=== PATIENT | female | born 1955 | race Caucasian/White ===

== ENCOUNTER 2017-05-27 17:51 | Inpatient (IN) | payer BC, OTHER ==
[2017-05-27 18:57] LABS: ABS Basophils 0.1 10^3/ul (0-0.2); ABS Eosinophils 0.2 10^3/ul (0-0.6); ABS Lymphocytes 1.4 10^3/ul (1.0-4.8); ABS Monocytes 0.7 10^3/ul (0-0.8); ABS Neutrophils 5.6 10^3/ul (1.5-7.7); ABS Nucleated RBC 0 10^3/ul; Hematocrit 41 % (35-47); Lymphocyte % 18.2 % (25-47); Mean Corpuscular HGB Conc 34 g/dl (31-36); Mean Corpuscular Hemoglobin 30 pg (27-31); Mean Corpuscular Volume 90 fL (80-97); Mean Platelet Volume 7 um3 (7.4-10.4); Nucleated Red Blood Cells % 0.1; Platelet Count 346 10^3/ul (150-450); Red Blood Count 4.62 10^6/ul (4.0-5.4); Red Cell Distribution Width 13 % (10.5-15); White Blood Count 7.9 10^3/ul (3.5-10.8)
[2017-05-27 19:13] LABS: EGFR Non-African American 133.4 (>60)
--- NOTE | 2017-05-27 19:14 | RAD ---
Indication: Shortness of breath. 2 views of the chest are reviewed and compared to previous exam dated January 18, 2015. Enlarged pulmonary arteries are noted with cephalization of lung markings suspicious for vascular congestion. No pleural fluid is identified. IMPRESSION: Findings suggestive of vascular congestion.
[2017-05-27] MEDS ORDERED: Albuterol/Ipratropium NEB.SOL* Albuterol 2.5 MG/Ipratropium 0.5 MG 3 ML INH ONE (20:42)
[2017-05-27] MEDS ORDERED: methylPREDNISolone 125 MG* 2 ML VIAL IV ONE (20:42)
[2017-05-27] MEDS ORDERED: Acetaminophen TAB* 325 MG PO PRN (22:19)
[2017-05-27] MEDS ORDERED: Ondansetron INJ* 2 MG/ML VIAL IV PRN (22:19)
[2017-05-27] MEDS ORDERED: Carisoprodol TAB* 350 MG PO PRN (22:50)
[2017-05-27] MEDS ORDERED: methylPREDNISolone SOD 40 MG* 1 ML VIAL IV SCH (23:00)
[2017-05-28] MEDS: Carisoprodol TAB* 350 MG PO PRN ×3 (00:20→22:18)
[2017-05-28] MEDS: cefTRIAXone(*) 1 GM in NS 0.9% 50 ML* 50 ML IVPB SCH ×2 (00:20→06:51)
[2017-05-28] MEDS: DOXYcycline CAP(*) 100 MG PO SCH ×3 (00:21→22:17)
[2017-05-28] MEDS: oxyCODONE/Acetamin 5/325 MG* TAB PO PRN ×2 (00:21→06:42)
[2017-05-28] MEDS: oxyCODONE TAB* 5 MG TAB PO PRN ×2 (00:27→06:43)
[2017-05-28] MEDS: Enoxaparin(*) 40 MG/0.4 ML SYR SUBCUT SCH ×2 (01:12→22:20)
[2017-05-28] MEDS: Albuterol HFA INHALER* 8 gm MDI INH PRN ×2 (01:18→16:11)
[2017-05-28] MEDS: Mometasone/Formoter 100/5 MDI INH SCH ×3 (01:21→19:52)
[2017-05-28] MEDS: Albuterol 2.5 MG/3 ML NEB.SOL* (0.083%) INH SCH ×5 (01:21→19:52)
[2017-05-28 06:27] LABS: ABS Basophils 0 10^3/ul (0-0.2); ABS Eosinophils 0 10^3/ul (0-0.6); ABS Lymphocytes 0.4 10^3/ul (1.0-4.8); ABS Monocytes 0.1 10^3/ul (0-0.8); ABS Neutrophils 6.3 10^3/ul (1.5-7.7); ABS Nucleated RBC 0 10^3/ul; Eosinophil % 0 % (0-6); Hematocrit 41 % (35-47); Hemoglobin 13.8 g/dl (12.0-16.0); Lymphocyte % 6.2 % (25-47); Mean Corpuscular HGB Conc 33 g/dl (31-36); Mean Corpuscular Hemoglobin 30 pg (27-31); Mean Corpuscular Volume 90 fL (80-97); Mean Platelet Volume 7 um3 (7.4-10.4); Nucleated Red Blood Cells % 0; Platelet Count 330 10^3/ul (150-450); Red Blood Count 4.62 10^6/ul (4.0-5.4); Red Cell Distribution Width 13 % (10.5-15); White Blood Count 6.8 10^3/ul (3.5-10.8)
[2017-05-28 06:30] LABS: EGFR Non-African American 111.3 (>60)
[2017-05-28] MEDS ORDERED: methylPREDNISolone SOD 40 MG* 1 ML VIAL IV SCH (08:00)
[2017-05-28] MEDS: Vitamin E CAP* 400 UNIT PO SCH (08:18)
[2017-05-28] MEDS: Cholecalciferol TAB* 400 UNIT PO SCH (08:18)
[2017-05-28] MEDS: CMCS:OMEGA-3 FATTY ACIDS (NF) 1,000 MG CAP PO SCH (08:18)
[2017-05-28] MEDS: Ascorbic Acid TAB* 500 MG PO SCH ×2 (08:19→22:18)
[2017-05-28] MEDS: Sertraline* 100 MG TAB PO SCH ×2 (08:19→22:17)
[2017-05-28] MEDS: Tiotropium CAP.INH* CAP.INH/18 MCG (USE ORDER SET !) INH SCH (08:50)
[2017-05-28] MEDS ORDERED: Spiriva Inhaler DEVICE* 1 EACH DEVICE INH ONE (09:00)
[2017-05-28] MEDS ORDERED: Magnesium Hydroxide LIQ* 30 ML UDC PO ONE (09:43)
--- NOTE | 2017-05-28 10:33 | HP ---
CC: Dr. Marilin Martinez * HISTORY AND PHYSICAL: DATE OF ADMISSION: 05/27/17 PROVIDER: Regla Gee NP. PRIMARY CARE PROVIDER: Marilin Martinez MD. ATTENDING PHYSICIAN WHILE IN THE HOSPITAL: Valeria Garner DO * (dictated by Regla Gee NP.) CHIEF COMPLAINT: Shortness of breath. HISTORY OF PRESENT ILLNESS: Ms. Waters is a 62-year-old female who presented to the emergency room this evening after 10 days of increased shortness of breath. She states over the past 10 days it has been progressively getting worse. Initially, she did not wear oxygen at home, and approximately 10 days ago started wearing oxygen at 3.5 liters and since then has had to increase that to 4 liters. She states that she has had chills on and off for the past 10 days. She also reports decreased appetite due to her inability to breathe. She also reports that she has a moist congested cough that is productive with green-yellow sputum, and sometimes it is clear. She also reports that she has stopped taking her medications approximately 10 days ago due to the fact that she was unable to breathe well. She denies any weight gain. She does report that she had approximately a 10- pound weight loss in the last 10 days due to her decreased appetite. She denies any extremity swelling. She denies any nausea, vomiting, or diarrhea. She denies any abdominal pain. She does report increased shortness of breath. She denies any chest pain. She denies any dysuria, frequency, or hematuria. Denies any loss of consciousness. She does report chills on and off. Does not report any fever, but does state that she has felt hot at times. Due to her unrelieved shortness of breath, we were asked to evaluate her for admission by the emergency room. The patient also does report that she was recently prescribed antibiotics for a sinus infection approximately three weeks ago that she said did help her temporarily. She states about 10 days ago, she was prescribed Tamiflu by her primary care provider when she called and reported body aches and chills. She was not seen by her primary care at that time. PAST MEDICAL HISTORY: 1. COPD. 2. Hypertension. 3. Chronic back pain. 4. Depression. 5. Obstructive sleep apnea. PAST SURGICAL HISTORY: Back surgery. HOME MEDICATIONS: Include: 1. Zoloft 100 mg p.o. b.i.d. 2. Vitamin D 400 units p.o. daily. 3. Vitamin C 500 units p.o. b.i.d. 4. Ambien 10 mg p.o. at bedtime p.r.n. 5. Vitamin E 400 units p.o. daily. 6. Aldactone 50 mg p.o. daily. 7. Fish oil 1000 mg p.o. daily. 8. Furosemide 40 mg p.o. daily. 9. Oxycodone/acetaminophen 10/325 one tablet every 6 hours. 10. Soma 350 mg p.o. q. 6 hours as needed. 11. Spiriva one cap inhaled daily. 12. Symbicort 80/4.5 one puff b.i.d. 13. Albuterol HFA two puffs q. 4 hours as needed for shortness of breath. ALLERGIES TO MEDICATIONS: 1. AZITHROMYCIN. 2. CODEINE. 3. LEVOFLOXACIN. FAMILY HISTORY: She states that her family history is unknown with her biological father. She states her biological mother did have diabetes. Denies any family history of coronary artery disease or cancer. SOCIAL HISTORY: The patient reports that she continues to smoke two packs a day for the past 43 years. She denies any alcohol use. Denies any drug use. She is currently and she lives with her . In the event she is unable to make her own medical decisions, her Carmeol is her surrogate decision maker. REVIEW OF SYSTEMS: There was no documented fever. There has been a reported approximately 10-pound weight loss. The patient denies any double vision. Denies any ear drainage. Denies any rhinorrhea. Denies sore throat. Denies any chest pain. Does report shortness of breath at rest and with exertion. There is no abdominal pain. No nausea, vomiting, or diarrhea. No dysuria. No frequency. She denies any loss of consciousness. Denies any skin ulcerations or pruritus. Review of 14 systems was completed and all others were negative. PHYSICAL EXAMINATION GENERAL: At this time, Ms. Waters is a 62-year-old female. She appears in moderate respiratory distress, sitting on the stretcher in the emergency room. VITAL SIGNS: Blood pressure was 106/55, temperature 98.7, pulse 79, respirations 16, O2 saturation is 99% on 4 L. HEENT: Head is atraumatic, normocephalic. Eyes: EOMs are intact. Sclerae anicteric and not pale. Oral mucosa appears to be moist. There is no oropharyngeal erythema. NECK: Supple. LUNGS: Diminished throughout bilaterally. No wheezes, rales, or rhonchi. HEART: S1, S2. Regular rate and rhythm. No murmurs, rubs, or gallops. ABDOMEN: Soft, flat, nontender. Bowel sounds are active x4. EXTREMITIES: Pulses are +2 throughout. She is moving all 4 extremities with 5/ 5 strength. NEUROLOGIC: She is alert and oriented x3. Speech is clear. There are no focal deficits. SKIN: Intact. DIAGNOSTIC STUDIES AND LABORATORY DATA: WBC is 7.9, hemoglobin 14.0, hematocrit 41, and platelet count 346. Sodium 137, potassium 3.8, chloride 93, carbon dioxide 43, anion gap 1, BUN 7, creatinine 0.47, glucose 85, lactic acid 0.8, calcium 9.7, AST 10. C-reactive protein 49.14. BNP 33. Troponin 0.00. Albumin was 3.5. Chest x-ray: Radiologist's impression: Finding suggestive of vascular congestion. EKG: She is in sinus rhythm at a rate of 73. There are no ST changes. ASSESSMENT AND PLAN: Ms. Waters is a 62-year-old female that presented to the emergency room this evening for complaints of increase shortness of breath x10 days. We were asked to evaluate her due to her increased shortness of breath. She will be admitted inpatient status for: 1. Chronic obstructive pulmonary disease exacerbation. I suspect that her shortness of breath is related to chronic obstructive pulmonary disease exacerbation rather than volume overload. At this time, we will place her on albuterol and nebulizers q. 4 hours while awake. I will continue her Spiriva. We will continue her Symbicort. She will be placed on Solu-Medrol 60 mg IV q. 12 hours. I will also place her on doxycycline 100 mg p.o. b.i.d. and ceftriaxone 1 g IV q. 24 hours to cover her empirically for possibility of underlying pneumonia due to the severity of her symptoms. I will repeat a CBC in the a.m. She will be continued on oxygen support as needed. 2. Hypertension. Again, her blood pressure is now noted to be in the 90s and low 100s. She states that always runs that way. She is asymptomatic. I am going to hold her Lasix and spironolactone at this time. 3. Chronic pain. We will continue her pain meds as prescribed - oxycodone and Soma on a p.r.n. basis. 4. Depression. Stable at this time. We will continue supportive care and continue her Zoloft. 5. DVT prophylaxis. She is at high risk with a rating of number 3. She will be placed on Lovenox subcu daily. 6. Code status. She is a full code. 7. Fluids, electrolytes, and nutrition. I will place her on a low-sodium diet. TIME SPENT: Time spent on this admission was approximately 60 minutes; greater than half that time was spent [id number] with the patient obtaining history and physical, and the other half of the time was spent going over the plan of care with the patient and implementing that plan of care. I have discussed this with my attending, Dr. Valeria Garner, and she is in agreement with my plan. REGLA GEE, JACE [id number]/[facility] #: [id number] GUSTABO
[2017-05-28] MEDS ORDERED: Ibuprofen TAB* 600 MG PO PRN (10:57)
[2017-05-28] MEDS ORDERED: oxyCODONE TAB* 5 MG TAB PO PRN ×2 (10:57→14:24)
[2017-05-28] MEDS ORDERED: Hydrocodone/Acetamin 10/325 1 TAB PO PRN (14:22)
--- NOTE | 2017-05-28 14:29 | PN ---
Subjective Date of Service: 05/28/17 Interval History: Sl better today. Dry cough. Requests her usual pain meds. Objective Active Medications: Acetaminophen (Tylenol Tab*) 650 mg PO Q4H PRN PRN Reason: FEVER/PAIN Hydrocodone Bitart/Acetaminophen (Morrison 10/325 (Nf)) 1 tab PO Q4H PRN PRN Reason: PAIN Hydrocodone Bitart/Acetaminophen (Morrison 10/325 (Nf)) 2 tab PO Q4H PRN PRN Reason: PAIN Albuterol (Ventolin Hfa Inhaler*) 2 puff INH Q4H PRN PRN Reason: SOB/WHEEZING Last Admin: 05/28/17 01:18 Dose: 2 puff Albuterol (Ventolin 2.5 Mg/3 Ml Neb.Cinthia*) 2.5 mg INH [id number] AWAKE [facility] Last Admin: 05/28/17 13:57 Dose: 2.5 mg Ascorbic Acid (Vitamin C Tab*) 500 mg PO BID [facility] Last Admin: 05/28/17 08:19 Dose: 500 mg Carisoprodol (Soma Tab*) 350 mg PO Q8H PRN PRN Reason: PAIN - BACK Last Admin: 05/28/17 14:22 Dose: 350 mg Cholecalciferol (Vitamin D Tab*) 400 unit PO DAILY [facility] Last Admin: 05/28/17 08:18 Dose: 400 unit Doxycycline Hyclate (Vibramycin Cap(*)) 100 mg PO BID [facility] Last Admin: 05/28/17 08:18 Dose: 100 mg Enoxaparin Sodium (Lovenox(*)) 40 mg SUBCUT Q24H [facility] Last Admin: 05/28/17 01:12 Dose: Not Given Fish Oil (Fish Oil (Nf)) 1,000 mg PO DAILY [facility] PRN Reason: Protocol Last Admin: 05/28/17 08:18 Dose: 1,000 mg Furosemide (Lasix Tab*) 40 mg PO DAILY [facility] Ceftriaxone Sodium 1 gm/ (Sodium Chloride) 50 mls @ 200 mls/hr IVPB Q24H [facility] Last Admin: 05/28/17 06:51 Dose: 200 mls/hr Ibuprofen (Motrin Tab*) 600 mg PO Q6H PRN PRN Reason: PAIN Mometasone Furoate/Formoterol Fumar (Dulera 100/5 Mdi*) 1 puff INH BID [facility] Last Admin: 05/28/17 08:50 Dose: 1 puff Ondansetron HCl (Zofran Inj*) 4 mg IV Q4H PRN PRN Reason: NAUSEA/VOMITING Oxycodone/Acetaminophen (Percocet 10/325 (Nf)) 1 tab PO Q4H PRN PRN Reason: PAIN Prednisone (Deltasone Tab*) 60 mg PO DAILY [facility] Sertraline HCl (Zoloft*) 100 mg PO BID [facility] Last Admin: 05/28/17 08:19 Dose: 100 mg Spironolactone (Aldactone Tab*) 50 mg PO DAILY [facility] Tiotropium Enterprise (Spiriva Cap.Inh*) 1 cap INH DAILY [facility] Last Admin: 05/28/17 08:50 Dose: 1 cap Vitamin E (Vitamin E Cap*) 400 unit PO DAILY [facility] Last Admin: 05/28/17 08:18 Dose: 400 unit Vital Signs - 8 hr 05/28/17 05/28/17 05/28/17 06:42 06:43 06:56 Temperature Pulse Rate Respiratory 18 18 16 Rate Blood Pressure (mmHg) O2 Sat by Pulse Oximetry 05/28/17 05/28/17 05/28/17 08:02 08:28 08:29 Temperature 97.5 F Pulse Rate 93 Respiratory 17 18 18 Rate Blood Pressure 119/92 (mmHg) O2 Sat by Pulse 95 Oximetry 05/28/17 05/28/17 05/28/17 08:35 08:54 11:05 Temperature 97.8 F Pulse Rate 80 99 Respiratory 18 16 16 Rate Blood Pressure 115/71 (mmHg) O2 Sat by Pulse 95 95 Oximetry 05/28/17 05/28/17 05/28/17 11:48 13:20 14:00 Temperature Pulse Rate 78 Respiratory 18 18 16 Rate Blood Pressure (mmHg) O2 Sat by Pulse 93 Oximetry 05/28/17 14:22 Temperature Pulse Rate Respiratory 18 Rate Blood Pressure (mmHg) O2 Sat by Pulse Oximetry Oxygen Devices in Use Now: Nasal Cannula Appearance: Alert, sitting up in bed. In fair spirits. Looks comfortable, occ dry cough. Eyes: No Scleral Icterus Neck: NL Appearance and Movements; NL JVP, No Thyroid Enlargement, Masses Respiratory: Symmetrical Chest Expansion and Respiratory Effort, Clear to Percussion, - - mild rhonchi BL Cardiovascular: NL Sounds; No Murmurs; No JVD, RRR, No Edema, - Extremities: No Edema, No Clubbing, Cyanosis, - Skin: No Rash or Ulcers, No Nodules or Sclerosis, - Neurological: Alert and Oriented x 3, NL Sensation Result Diagrams: 05/28/17 05:49 05/28/17 05:49 Assess/Plan/Problems-Billing Assessment: - Patient Problems (1) COPD exacerbation Current Visit: No Status: Acute Priority: Medium Code(s): J44.1 - CHRONIC OBSTRUCTIVE PULMONARY DISEASE W (ACUTE) EXACERBATION SNOMED Code(s): 598217013527730 Comment: Transition to PO prednisone, taper at home. Continue cephalosporin and doxy. She has a nebulizer at home but doesn't use it. (2) Tobacco abuse Current Visit: Yes Status: Acute Code(s): Z72.0 - TOBACCO USE SNOMED Code( s): 273239816 Comment: Pt advised to quit smoking and avoid second hand smoke. Her smokes. She has nictoine gum and an inhaler at home. She uses O2 off and on at home, not every day. (3) Chronic pain Current Visit: Yes Status: Acute Code(s): G89.29 - OTHER CHRONIC PAIN SNOMED Code(s): 61472870 Comment: Continue her home pain meds.
[2017-05-28] MEDS ORDERED: oxyCODONE/Acetamin 5/325 MG* TAB PO PRN (14:31)
--- NOTE | 2017-05-28 14:32 | ED ---
Yaneth Abbott Julia, scribed for Reji Story MD on 05/27/17 at 1815 . Respiratory - HPI Summary HPI Summary: This patient is a 62 year old F BIBA to [facility] with a chief complaint of worsening SOB today. Patient reports recent productive cough and illness. Patient finished last does of Tamiflu today. She usually uses 3.5L of at home O2 , but she changed to 4L due to her symptoms today. Patient has a history of COPD. She states she is not taking her Lasix or Spiractin. - History of Current Complaint Stated Complaint: DIFF BREATHING Time Seen by Provider: 05/27/17 17:59 Hx Obtained From: Patient Onset/Duration: Lasting Hours, Still Present Character: Cough (Productive), Dyspnea at Rest Associated Signs and Symptoms: SOB - and cough Related History: Similar Episode/Dx as - COPD - Allergy/Home Medications Allergies/Adverse Reactions: Allergies Allergy/AdvReac Type Severity Reaction Status Date / Time azithromycin Allergy Rash Verified 05/27/17 18:12 codeine Allergy Nausea Verified 05/27/17 18:12 levofloxacin Allergy Nausea And Verified 05/27/17 18:12 Vomiting Home Medications: Home Medications Albuterol HFA INHALER* [Ventolin HFA Inhaler*] 2 puff INH Q4H PRN 05/27/17 [ History Confirmed 05/27/17] Budesonide/Formote 80/4.5(NF) [Symbicort 80/4.5 (NF)] 1 puff INH BID 05/27/17 [ History Confirmed 05/27/17] Tiotropium CAP.INH* [Spiriva CAP.INH*] 1 cap.inh INH DAILY 05/27/17 [History Confirmed 05/27/17] oxyCODONE/Acetamin 10/325(NF) [Percocet 10/325 (NF)] 1 tab PO Q6H 05/27/17 [ History Confirmed 05/27/17] PMH/Surg Hx/FS Hx/Imm Hx Cardiovascular History: Reports: Hx Hypertension Respiratory History: Reports: Hx Chronic Obstructive Pulmonary Disease (COPD), Hx Sleep Apnea Musculoskeletal History: Reports: Hx Back Problems Sensory History: Reports: Hx Contacts or Glasses Opthamlomology History: Reports: Hx Contacts or Glasses Psychiatric History: Reports: Hx Depression - Surgical History Surgery Procedure, Year, and Place: multiple back surgeries,. 2 c-sections,. appendectomy,. all more than 10 years ago Infectious Disease History: No Infectious Disease History: Denies: Traveled Outside the [place] in Last 30 Days - Family History Known Family History: Positive: Unknown - pt is adopted - Social History Alcohol Use: None Substance Use Type: Reports: None, Prescribed Smoking Status (MU): Heavy Every Day Tobacco Smoker Type: Cigarettes Review of Systems Positive: Other - recent influenza Positive: Shortness Of Breath, Cough All Other Systems Reviewed And Are Negative: Yes Physical Exam - Summary Physical Exam Summary: Appearance: The patient is well-nourished in no acute distress and in no acute pain. Skin: The skin is warm and dry and skin color reflects adequate perfusion. HEENT: The head is normocephalic and atraumatic. The pupils are equal and reactive. The conjunctivae are clear and without drainage. Nares are patent and without drainage. Mouth reveals moist mucous membranes and the throat is without erythema and exudate. The external ears are intact. The ear canals are patent and without drainage. The tympanic membranes are intact. Neck: the neck is supple with full range of motion and non-tender. There are no carotid bruits. There is no neck vein distension. Respiratory: Chest is non-tender. Lungs have coarse crackles half way up in both sears, worse on the right than left. Breath sounds are symmetrical and equal. Cardiovascular: Heart is regular rate and rhythm. There is no murmur or rub auscultated. There is no peripheral edema and pulses are symmetrical and equal. Abdomen: The abdomen is soft and non-tender. There are normal bowel sounds heard in all four quadrants and there is no organomegaly palpated. Musculoskeletal: There is no back tenderness noted. Extremities are non-tender with full range of motion. There is good capillary refill. There is no peripheral edema or calf tenderness elicited. Neurological: Patient is alert and oriented to person, place and time. The patient has symmetrical motor strength in all four extremities. Cranial nerves are grossly intact. Deep tendon reflexes are symmetrical and equal in all four extremities. Psychiatric: The patient has an appropriate affect and does not exhibit any anxiety or depression. Triage Information Reviewed: Yes Vital Signs On Initial Exam: Initial Vitals Temp Pulse Resp BP Pulse Ox 98.7 F 74 16 105/66 97 05/27/17 18:02 05/27/17 18:02 05/27/17 18:02 05/27/17 18:02 05/27/17 18:02 Vital Signs Reviewed: Yes Diagnostics - Vital Signs Vital Signs Temp Pulse Resp BP Pulse Ox 05/27/17 18:02 98.7 F 74 16 105/66 97 - Laboratory Lab Results: Lab Results 05/27/17 05/27/17 05/27/17 Range/Units 18:39 18:39 18:39 WBC 7.9 (3.5-10.8) 10^3/ul RBC 4.62 (4.0-5.4) 10^6/ul Hgb 14.0 (12.0-16.0) g/dl Hct 41 (35-47) % MCV 90 (80-97) fL MCH 30 (27-31) pg MCHC 34 (31-36) g/dl RDW 13 (10.5-15) % Plt Count 346 (150-450) 10^3/ul MPV 7 L (7.4-10.4) um3 Neut % (Auto) 70.0 (38-83) % Lymph % (Auto) 18.2 L (25-47) % Billings % (Auto) 9.1 H (0-7) % Eos % (Auto) 2.0 (0-6) % Baso % (Auto) 0.7 (0-2) % Absolute Neuts (auto) 5.6 (1.5-7.7) 10^3/ul Absolute Lymphs (auto) 1.4 (1.0-4.8) 10^3/ul Absolute Monos (auto) 0.7 (0-0.8) 10^3/ul Absolute Eos (auto) 0.2 (0-0.6) 10^3/ul Absolute Basos (auto) 0.1 (0-0.2) 10^3/ul Absolute Nucleated RBC 0 10^3/ul Nucleated RBC % 0.1 Sodium 137 (133-145) mmol/L Potassium 3.8 (3.5-5.0) mmol/L Chloride 93 L (101-111) mmol/L Carbon Dioxide 43 H* (22-32) mmol/L Anion Gap 1 L (2-11) mmol/L BUN 7 (6-24) mg/dL Creatinine 0.47 L (0.51-0.95) mg/dL Est GFR ( Amer) 171.6 (>60) Est GFR (Non-Af Amer) 133.4 (>60) BUN/Creatinine Ratio 14.9 (8-20) Glucose 85 (70-100) mg/dL Lactic Acid (0.5-2.0) mmol/L Calcium 9.7 (8.6-10.3) mg/dL Total Bilirubin 0.30 (0.2-1.0) mg/dL AST 10 L (13-39) U/L ALT 9 (7-52) U/L Alkaline Phosphatase 73 (34-104) U/L Troponin I 0.00 (<0.04) ng/mL C-Reactive Protein 49.14 H (< 5.00) mg/L B-Natriuretic Peptide 33 ( - 100) pg/mL Total Protein 6.7 (6.4-8.9) g/dL Albumin 3.5 (3.2-5.2) g/dL Globulin 3.2 (2-4) g/dL Albumin/Globulin Ratio 1.1 (1-3) 03// Range/Units 18:39 WBC (3.5-10.8) 10^3/ul RBC (4.0-5.4) 10^6/ul Hgb (12.0-16.0) g/dl Hct (35-47) % MCV (80-97) fL MCH (27-31) pg MCHC (31-36) g/dl RDW (10.5-15) % Plt Count (150-450) 10^3/ul MPV (7.4-10.4) um3 Neut % (Auto) (38-83) % Lymph % (Auto) (25-47) % Billings % (Auto) (0-7) % Eos % (Auto) (0-6) % Baso % (Auto) (0-2) % Absolute Neuts (auto) (1.5-7.7) 10^3/ul Absolute Lymphs (auto) (1.0-4.8) 10^3/ul Absolute Monos (auto) (0-0.8) 10^3/ul Absolute Eos (auto) (0-0.6) 10^3/ul Absolute Basos (auto) (0-0.2) 10^3/ul Absolute Nucleated RBC 10^3/ul Nucleated RBC % Sodium (133-145) mmol/L Potassium (3.5-5.0) mmol/L Chloride (101-111) mmol/L Carbon Dioxide (22-32) mmol/L Anion Gap (2-11) mmol/L BUN (6-24) mg/dL Creatinine (0.51-0.95) mg/dL Est GFR ( Amer) (>60) Est GFR (Non-Af Amer) (>60) BUN/Creatinine Ratio (8-20) Glucose (70-100) mg/dL Lactic Acid 0.8 (0.5-2.0) mmol/L Calcium (8.6-10.3) mg/dL Total Bilirubin (0.2-1.0) mg/dL AST (13-39) U/L ALT (7-52) U/L Alkaline Phosphatase (34-104) U/L Troponin I (<0.04) ng/mL C-Reactive Protein (< 5.00) mg/L B-Natriuretic Peptide ( - 100) pg/mL Total Protein (6.4-8.9) g/dL Albumin (3.2-5.2) g/dL Globulin (2-4) g/dL Albumin/Globulin Ratio (1-3) Result Diagrams: 05/28/17 05:49 05/28/17 05:49 Lab Statement: Any lab studies that have been ordered have been reviewed, and results considered in the medical decision making process. - Radiology CXR Radiology Interpretation Completed By: Radiologist - Findings suggestive of vascular congestion. ED Physician has reviewed this report. - EKG 1843 Cardiac Rate: NL - 73 BPM EKG Rhythm: Sinus Rhythm EKG Interpretation: right axis deviation Disposition - Course Course Of Treatment: Ms. Waters presented with a week of coughing and URI symptoms. She was started on Tamiflu by her PMD but has gotten worse. She is a long time smoker although she quit for awhile recently. She was given nebs ( she uses at home although she hasn't yesteerday or today) and steroids. The hospitalists are evaluating her for admission. - Diagnoses Provider Diagnoses: COPD exacerbation, Acute bronchitis - Physician Notifications Discussed Care Of Patient With: Valeria Garner - hospitalist Time Discussed With Above Provider: 21:40 Instructed by Provider To: Admit As Inpatient Discharge - Discharge Plan Condition: Stable Disposition: ADMITTED TO [facility] The documentation as recorded by the Yaneth madison Julia accurately reflects the service I personally performed and the decisions made by me, Reji Story MD.
[2017-05-28] MEDS: Hydrocodone/Acetamin 10/325 1 TAB PO PRN ×2 (15:08→19:44)
[2017-05-29] MEDS: cefTRIAXone(*) 1 GM in NS 0.9% 50 ML* 50 ML IVPB SCH ×2
[2017-05-29] MEDS: Hydrocodone/Acetamin 10/325 1 TAB PO PRN ×2 (00:31→05:46)
[2017-05-29] MEDS: Albuterol 2.5 MG/3 ML NEB.SOL* (0.083%) INH SCH ×2 (02:08→07:52)
[2017-05-29] MEDS: Carisoprodol TAB* 350 MG PO PRN (05:46)
[2017-05-29] MEDS: Tiotropium CAP.INH* CAP.INH/18 MCG (USE ORDER SET !) INH SCH (07:53)
[2017-05-29] MEDS: Mometasone/Formoter 100/5 MDI INH SCH (07:53)
[2017-05-29] MEDS ORDERED: predniSONE TAB* 20 MG PO SCH (09:00)
[2017-05-29] MEDS ORDERED: predniSONE TAB* 50 MG PO SCH (09:00)
[2017-05-29] MEDS ORDERED: Spironolactone TAB* 25 MG PO SCH (09:00)
[2017-05-29] MEDS ORDERED: Furosemide TAB* 40 MG PO SCH (09:00)
[2017-05-29] MEDS: Cholecalciferol TAB* 400 UNIT PO SCH (09:28)
[2017-05-29] MEDS: Ascorbic Acid TAB* 500 MG PO SCH (09:28)
[2017-05-29] MEDS: Vitamin E CAP* 400 UNIT PO SCH (09:29)
[2017-05-29] MEDS: DOXYcycline CAP(*) 100 MG PO SCH (09:29)
[2017-05-29] MEDS: Sertraline* 100 MG TAB PO SCH (09:29)
[2017-05-29] MEDS: CMCS:OMEGA-3 FATTY ACIDS (NF) 1,000 MG CAP PO SCH (09:31)
--- NOTE | 2017-05-29 11:43 | PN ---
Progress Note - Progress Note Date of Service: 05/29/17 Note: Time spent on discharge 40 minutes.
[2017-05-29 12:00] VITALS: BP 97/69
--- NOTE | 2017-05-30 02:44 | DS ---
CC: Dr. Martinez DISCHARGE SUMMARY: DATE OF ADMISSION: 05/27/17 DATE OF DISCHARGE: 05/29/17 HISTORY OF PRESENT ILLNESS: This 62-year-old woman presented with shortness of breath, it had been getting progressively worse for 10 days. She uses oxygen at home intermittently, some times she goes a whole day without using it. She continued to smoke up until the time of admission. Her also smokes I note. Rest of history is detailed in the admission note. Three weeks before admission , she had antibiotics for sinus infection, which helped a little bit. She was also prescribed Tamiflu by her primary care provider on the basis of report of body aches and chills about 10 days ago. She did not see her provider at that time. The patient is felt to have a COPD exacerbation. Her chest x-ray did not show any definite infiltrate, no effusion. She was given steroids and cephalosporin and doxycycline. She is reported as being allergic to AZITHROMYCIN. Her wheezing resolved. She felt better by the day of discharge and was anxious to go home. I spoke to her several times about quitting smoking, also about avoiding secondhand smoke. I also prescribed some DuoNeb. She was using a nebulizer. She will need to get it out of the closet and dust it off so she can use it. She has some old medication that is at least 5 years old that she can discard. FINAL DIAGNOSES: 1. Chronic obstructive pulmonary disease exacerbation. 2. Tobacco use disorder. 3. Chronic pain. DISCHARGE MEDICATIONS: 1. Doxycycline 100 mg b.i.d. for 5 days. 2. DuoNeb by nebulizer every 4 hours p.r.n. 3. Cefuroxime 500 mg b.i.d. for 5 days. 4. Prednisone 10 mg taper from 5 to 0 over 5 days. 5. Vitamin E 400 units daily. 6. Vitamin D 400 units daily. 7. Ascorbic acid 500 mg b.i.d. 8. Newsoms-3 fatty acids 1000 mg daily. 9. Zolpidem 10 mg h.s. p.r.n. 10. Sertraline 100 mg b.i.d. 11. Spironolactone 50 mg daily. 12. Furosemide 40 mg daily. 13. Carisoprodol 350 mg every 6 hours. 14. Tiotropium 1 capsule daily. 15. Budesonide/formoterol 80/4.5 one puff b.i.d. 16. Albuterol inhaler 2 puffs every 4 hours p.r.n. 17. Oxycodone/acetaminophen as prescribed. [id number]/[facility] #: [id number] MTDD
== END 2017-05-29 12:55 | disposition home health service (06) | DRG 140 ==
LOC: ED 17:51 → MED 22:19
PROVIDERS: ADMIT Nurse Practitioner; ATTEND Internal Medicine
DX: J44.1 Chronic obstructive pulmonary disease with (acute) exacerbation (principal); F17.210 Nicotine dependence, cigarettes, uncomplicated; I10 Essential (primary) hypertension; F32.9 Major depressive disorder, single episode, unspecified; G89.29 Other chronic pain; M54.9 Dorsalgia, unspecified; G47.33 Obstructive sleep apnea (adult) (pediatric); Z88.1 Allergy status to other antibiotic agents; Z88.5 Allergy status to narcotic agent; Z83.3 Family history of diabetes mellitus
CPT/HCPCS: 36415; 71046; 80048; 80053; 83605; 83880; 84484; 85025; 86140; 87040; 93005; 94640; 94760; 99283; A9270-GY; J0696; J1650; J2920; J2930; J7512